=== PATIENT | female | born 1955 | race Caucasian/White ===

== ENCOUNTER 2018-06-10 08:56 | Day surgery (SDC) | payer SELFPAY ==
[~2018-06-10] VITALS: Ht 172.7 cm; Wt 56.3 kg
[~2018-06-10 08:56] MED LIST: SODIUM CHLORIDE 0.9% 1000ML 1,000 ML IV ONE
[2018-06-10 10:58] VITALS: BP 119/58
[2018-06-10] MEDS ORDERED: PROPOFOL 10 MG/ML 20ML VIAL IV ONE (11:46)
[2018-06-10 12:05] VITALS: BP 115/62
[2018-06-10 12:10] VITALS: BP 106/60
[2018-06-10 12:15] VITALS: BP 114/64
--- NOTE | 2018-06-10 12:41 | NUR ---
PT TOLERATED PROCEDURE. NO C/O OF THROAT PAIN, STATES MILD SUBSTERNAL DISCOMFORT, INFORMED PT SHE WOULD HAVE SOME MILD DISCOMFORT R/T DILATION OF ESOPHAGUS DURING PROCEDURE, EXPLAINED DISCOMFORT WILL PASS TODAY. EDUCATED PT ON HOW TO RELIEVE DISCOMFORT, START WITH LIQUID DIET THEN ADVANCE TO SOFT SHE CAN TOLERATE. INFORMED PT TO CALL A AMBULANCE OR RETURN TO ER DEPARTMENT IF SHE IS UNABLE TO PASS FOOD OR SWALLOW WITH DIFFICULTY. REPORT AND D/C FORMS GIVEN TO PT AND MOTHER, BOTH VERBALIZED UNDERSTANDING. PT TAKEN OUT IN A WHEELCHAIR, DRIVEN HOME BY MOTHER.
== END 2018-06-10 12:41 | disposition home or self-care (01) ==
LOC: DAH 08:56 → ENDO 08:56
PROVIDERS: ATTEND Internal Medicine Gastroenterology
DX: K31.7 Polyp of stomach and duodenum (principal); K44.9 Diaphragmatic hernia without obstruction or gangrene; K31.89 Other diseases of stomach and duodenum; K22.2 Esophageal obstruction
CPT/HCPCS: 43239; 43249; A4606; J2704; J7030; 43251

== ENCOUNTER → 2018-07-02 | Outpatient (CLI) | payer SELFPAY | END | disposition home or self-care (01) | LOC: RAH 10:25 | PROVIDERS: ATTEND Internal Medicine Gastroenterology | DX: K21.9 Gastro-esophageal reflux disease without esophagitis (principal); K22.2 Esophageal obstruction | CPT/HCPCS: 74240 ==

== ENCOUNTER → 2020-05-11 | Outpatient (CLI) | payer SELFPAY | END | disposition home or self-care (01) | LOC: RAH 10:55 | PROVIDERS: ATTEND Surgery | DX: K31.84 Gastroparesis (principal) | CPT/HCPCS: 78264; A9541 ==